=== PATIENT | male | born 1975 | race Caucasian/White ===

== ENCOUNTER 2021-12-05 23:05 | Emergency (ER) | payer SELFPAY ==
[~2021-12-05] VITALS: Ht 180.3 cm; Wt 77.3 kg
[2021-12-06 05:20] VITALS: BP 132/95
== END 2021-12-06 06:04 | disposition home or self-care (01) ==
LOC: EMS 23:10
DX: F10.10 Alcohol abuse, uncomplicated (principal); R47.81 Slurred speech; F32.A Depression, unspecified
CPT/HCPCS: 99285; Z7502